=== PATIENT | female | born 1940 | race Caucasian/White ===

== ENCOUNTER 2020-11-10 13:50 | Emergency (ER) | payer MEDICARE ==
[~2020-11-10 13:50] MED LIST: Rocuronium Bromide 10 MG/ML (10ML VIAL) ONE
[2020-11-10 14:11] LABS: #Basophils 0.1 thou/uL (0.0-0.2); #Eosinphils 0.2 thou/uL (0.0-0.7); #Monocytes 0.7 thou/uL (0.11-0.59); #Neutrophils 5.5 thou/uL (1.40-6.50); %Basophils 1.3 % (0.0-1.0); %Eosinophils 2.8 % (0.0-10.0); %Monocytes 8.4 % (0.0-10.0); %Neutrophils 64.4 % (42.0-75.0); Hemoglobin 14.7 g/dL (12.0-16.0); Mean Corpuscular Hemoglobin 29.1 pg (27.0-31.0); Mean Platelet Volume 7.7 fL (7.4-10.4); Platelet Count 166 thou/uL (130-400); RBC Distribution Width 12.8 % (11.5-14.5); Red Blood Cell (RBC) Count 5.04 mill/uL (4.20-5.40); White Blood Cell (WBC) Count 8.6 thou/uL (4.8-10.8)
[2020-11-10 14:19] LABS: PTT 25.5 sec (22.9-36.1)
[2020-11-10] MEDS ORDERED: niCARdipine 20MG In NaCl 20 MG/200 ML BAG ONE (14:21)
[2020-11-10 14:29] LABS: ALT (SGPT) 23 U/L (8-55); AST (SGOT) 26 U/L (5-34); Albumin 4.1 g/dL (3.4-4.8); Alkaline Phosphatase 58 U/L (40-110); Anion Gap 15 mmol/L (10-20); BUN (Urea Nitrogen) 13 mg/dL (9.8-20.1); Bilirubin, Total 1.1 mg/dL (0.2-1.2); Calc. Creatinine Clearance 0 mL/min (70-130); Calcium 8.9 mg/dL (7.8-10.44); Carbon Dioxide 25 mmol/L (23-31); Chloride 103 mmol/L (98-107); Globulin 2.5 g/dL (2.4-3.5); Glucose 100 mg/dL (83-110); Protein, Total 6.6 g/dL (5.8-8.1); Sodium 139 mmol/L (136-145)
[2020-11-10] MEDS ORDERED: Lidocaine 0.5%/Epinephrine 1:200,000 50 ml Vial ONE (14:42)
[2020-11-10] MEDS ORDERED: Bacitracin Zinc Ointment 30 gm TUBE ONE (14:42)
[2020-11-10] MEDS ORDERED: Fentanyl 100 MCG/2 ML VIAL ONE ×2 (14:42→14:48)
[2020-11-10] MEDS ORDERED: Sodium Chloride 0.9% 10 ML ONE (14:42)
[2020-11-10] MEDS ORDERED: Thrombin 5000 UNITS/5 ML VIAL ONE ×2 (14:42→16:42)
[2020-11-10] MEDS ORDERED: Dexmedetomidine 200 MCG/2 ML VIAL ONE (14:48)
[2020-11-10] MEDS ORDERED: Albumin 5% 500 ML ONE (14:48)
[2020-11-10] MEDS ORDERED: levETIRAcetam in NS 100 ML ONE (16:12)
[2020-11-10 18:15] LABS: Actual Bicarbonate (HCO3a) 23.2 mEq/L (22-28); Base Excess (BEa) 0.9 mEq/L (-2.0 to +3.0); CO2 Tension 30.2 mmHg (35.0-45.0); Calcium, Ionized (arterial) 1.07 mmol/L (1.12-1.30); Carboxyhemoglobin (COHb) 0.4 gm% (0.0-3.0); Hemoglobin (Hb) 12.8 g/dL (12.0-16.0); O2 Tension (PaO2), arterial 121.9 mmHg (> 60.0); Potassium - ABG Lab 3.14 mmol/L (3.70-5.30)
[2020-11-11 05:27] LABS: Puncture Site Arterial Line
== END 2020-11-10 15:08 | disposition short-term general hospital (02) ==
LOC: MADERS 13:50
DX: I61.1 Nontraumatic intracerebral hemorrhage in hemisphere, cortical (principal); M19.90 Unspecified osteoarthritis, unspecified site; Z85.3 Personal history of malignant neoplasm of breast
CPT/HCPCS: 31500; 36416; 70450; 80053; 82805; 84484; 85025; 85610; 85730; 93005; 94760; 96365; 96375; J1953; J2001; J3010; J3370; J3490; P9045